=== PATIENT | female | born 1970 | race Caucasian/White ===

== ENCOUNTER 2016-12-31 12:02 | Outpatient (CLI) | payer OTHER | END 2016-12-31 20:01 | disposition home or self-care (01) | LOC: EEVIPCON 12:02 → SMI 12:02 | PROVIDERS: ATTEND Internal Medicine | DX: R10.9 Unspecified abdominal pain (principal); Z90.49 Acquired absence of other specified parts of digestive tract | CPT/HCPCS: 74181 ==